=== PATIENT | female | born 1940 | race Caucasian/White ===

== ENCOUNTER → 2019-06-27 | Outpatient (CLI) | payer MEDICARE, OTHER ==
[~2019-06-27] MED LIST: AMLO5 PO; NEBI5 PO; Zestril40 MG PO
[2019-06-27 13:49] LABS: Stool Occult Bld Immuno 1 Negative (NEGATIVE)
== END | disposition home or self-care (01) ==
LOC: LAB SHORT 09:00 → LAB 09:00 → LAB FUT 05-28 10:30
PROVIDERS: Family Medicine
DX: Z12.11 Encounter for screening for malignant neoplasm of colon (principal); I10 Essential (primary) hypertension
CPT/HCPCS: G0328

== ENCOUNTER 2019-09-24 08:00 | Day surgery (SDC) | payer MEDICARE, OTHER ==
[~2019-09-24] VITALS: Ht 162.6 cm; Wt 65.8 kg
--- NOTE | 2019-09-24 08:56 | NUR ---
09/24/19 0856 Kelby Lu CALL LIGHT WITHIN REACH.
== END 2019-09-24 10:17 | disposition home or self-care (01) ==
LOC: ORSCSDS 08:00
PROVIDERS: Ophthalmology
PROC: 08RJ3JZ Replacement of Right Lens with Synthetic Substitute, Percutaneous Approach (ICD-10-PCS; principal; 2019-09-24 09:30)
DX: H25.11 Age-related nuclear cataract, right eye (principal); H18.51 Endothelial corneal dystrophy; I10 Essential (primary) hypertension; Z79.899 Other long term (current) drug therapy
CPT/HCPCS: J2001; J2250; J3010; J3301; J7040; J7120; V2632

== ENCOUNTER 2020-09-29 06:16 | Day surgery (SDC) | payer MEDICARE, OTHER ==
[~2020-09-29] VITALS: Ht 162.6 cm; Wt 65.3 kg
[~2020-09-29 06:16] MED LIST changes: +ALEN70 PO; +AMLODIPINE BESY10 MG PO; +ZESTRIL40 M2 PO
== END 2020-09-29 08:16 | disposition home or self-care (01) ==
LOC: ORSCSDS 06:16
PROVIDERS: Ophthalmology
PROC: 08RK3JZ Replacement of Left Lens with Synthetic Substitute, Percutaneous Approach (ICD-10-PCS; principal; 2020-09-29 07:30)
DX: H25.12 Age-related nuclear cataract, left eye (principal); H18.512 Endothelial corneal dystrophy, left eye; I10 Essential (primary) hypertension; Z79.899 Other long term (current) drug therapy
CPT/HCPCS: J2001; J2250; J3010; J3301; V2632

== ENCOUNTER 2023-07-17 05:51 | Day surgery (SDC) | payer MEDICARE, OTHER ==
[2023-07-17] VITALS (12 sets, daily range): BP systolic 116–166; BP diastolic 58–89
[~2023-07-17 05:51] MED LIST changes: +DOXA1 PO
== END 2023-07-17 22:34 | disposition home or self-care (01) ==
LOC: MHTC 05:51
DX: I34.1 Nonrheumatic mitral (valve) prolapse (principal); I34.0 Nonrheumatic mitral (valve) insufficiency; I27.20 Pulmonary hypertension, unspecified; I10 Essential (primary) hypertension; E78.5 Hyperlipidemia, unspecified
CPT/HCPCS: 93312; 93325; A9270; J2001; J2704; J7030

== ENCOUNTER 2025-05-04 20:05 | Emergency (ER) | payer MEDICARE, OTHER ==
[~2025-05-04] VITALS: Ht 165.1 cm; Wt 54.4 kg
[2025-05-04 20:57] LABS: BASOPHILS ABSOLUTE AUTO 0.03 K/mm3 (0.00-0.23); BASOPHILS PERCENT AUTO 0 % (0-2); EOSINOPHILS ABSOLUTE AUTO 0.05 K/mm3 (0.00-0.68); EOSINOPHILS PERCENT AUTO 0 % (0-6); Hematocrit 35.9 % (33.0-51.0); Hemoglobin 11.8 g/dL (11.5-16.0); IMMATURE GRAN ABSOLUTE AUTO 0.07 K/mm3 (0.00-0.10); IMMATURE GRAN PERCENT AUTO 1 % (0-1); LYMPHOCYTES ABSOLUTE AUTO 1.16 K/mm3 (0.84-5.20); LYMPHOCYTES PERCENT AUTO 8 % (21-46); MONOCYTES ABSOLUTE AUTO 0.64 K/mm3 (0.16-1.47); MONOCYTES PERCENT AUTO 4 % (4-13); Mean Corpuscular HGB 28.7 pg (26.0-34.0); Mean Corpuscular HGB Conc 32.9 g/dL (31.5-36.5); Mean Corpuscular Volume 87 fL (80-100); Mean Platelet Volume 10.1 fL (9.1-12.4); NEUTROPHILS ABSOLUTE AUTO 12.57 K/mm3 (1.96-9.15); NEUTROPHILS PERCENT AUTO 87 % (41-73); Platelet Count 281 K/mm3 (150-400); RDW Standard Deviation 41.5 fL (35.1-46.3); Red Blood Cell Count 4.11 M/mm3 (3.80-5.20); White Blood Cell Count 14.52 K/mm3 (4.00-11.30)
[2025-05-04 21:28] LABS: Albumin, Blood 3.8 g/dL (3.4-5.0); Bilirubin, Total 0.5 mg/dL (0.1-1.0); Bun/Creatinine Ratio 17.2 (12.0-20.0); Calcium, Blood 9.1 mg/dL (8.5-10.1); Creatinine, Blood 0.7 mg/dL (0.40-1.00); Globulin, Blood 3.7 g/dL (2.2-4.0); Potassium, Blood 4.1 mmol/L (3.5-5.5); Total Protein, Blood 7.5 g/dL (6.4-8.2)
[2025-05-05 02:28] LABS: Source, Urine Clean Catch
[2025-05-05 02:34] LABS: Bilirubin, Urine Neg (Neg); Blood, Urine 3+ (Neg); Glucose Qualitative, Urine Neg (Neg); Ketones, Urine Neg (Neg); Leukocyte Esterase, Urine Neg (Neg); Nitrite, Urine Neg (Neg); Protein, Urine Neg (Neg); Specific Gravity, Urine 1.005 (1.003-1.022); Urobilinogen, Urine NORM (Normal)
[2025-05-05 02:40] LABS: Appearance, Urine Clear (Clear); Color, Urine Pale Yellow (P-Yellow)
[2025-05-05 02:41] LABS: Bacteria Not Seen /hpf; Squamous Epithelial Cells Rare /hpf (Few); White Blood Cells, Urine Not Seen /hpf (0-5)
[2025-05-05] MEDS ORDERED: NS 1,000 ML IV SCH (03:10)
[2025-05-05 04:00] VITALS: BP 139/79
[2025-05-05] MEDS ORDERED: MECL12.5 PO (04:58)
== END 2025-05-05 06:10 | disposition home or self-care (01) ==
LOC: ER 20:05
PROVIDERS: Student in an Organized Health Care Education/Training Program
DX: E86.0 Dehydration (principal); R42 Dizziness and giddiness; E87.1 Hypo-osmolality and hyponatremia; R73.9 Hyperglycemia, unspecified; D72.829 Elevated white blood cell count, unspecified; R31.9 Hematuria, unspecified; I10 Essential (primary) hypertension; Z79.899 Other long term (current) drug therapy; Z59.89 Other problems related to housing and economic circumstances
CPT/HCPCS: 80053; 81001; 84484; 85025; 93005; 93010; 99284-25; J7030